=== PATIENT | male | born 1970 | race Caucasian/White ===

== ENCOUNTER 2016-12-12 15:57 | Emergency (ER) | payer OTHER ==
[~2016-12-12] VITALS: Ht 195.6 cm; Wt 156.5 kg
[2016-12-12 16:31] LABS: ABSOLUTE BASOPHIL COUNT 0.1 /CUMM (0.0-0.2); ABSOLUTE EOSINOPHIL COUNT 0.3 /CUMM (0.0-0.7); ABSOLUTE GRANULOCYTE CT 7.6 /CUMM (1.4-6.5); ABSOLUTE LYMPH COUNT 1.8 /CUMM (1.2-3.4); ABSOLUTE MONOCYTE COUNT 0.8 /CUMM (0.10-0.60); BASOPHIL % 0.6 % (0.0-2.0); EOSINOPHIL % 3.1 % (0-5); GRANULOCYTE % 72.1 % (42.2-75.2); HEMATOCRIT 42.2 % (42-52); MEAN CORPUSCULAR HGB 30.5 PG (27.0-31.0); MEAN CORPUSCULAR HGB CONC 34.2 G/DL (33.0-37.0); MEAN CORPUSCULAR VOLUME 89.3 FL (80.0-94.0); MEAN PLATELET VOLUME 8.9 FL (7.4-10.4); PLATELET COUNT 231 /CUMM (130-400); RBC DISTRIBUTION WIDTH 13.9 % (11.5-14.5); RED BLOOD CELL CT 4.73 /CUMM (4.70-6.10); WHITE BLOOD CELL COUNT 10.6 /CUMM (4.8-10.8)
[2016-12-12 16:35] LABS: PT 10.8 SEC (9.4-12.5); PTT 33 SEC (25-37)
--- NOTE | 2016-12-12 17:24 | RADIOLOGY REPORT ---
EXAMINATION: XR CHEST CLINICAL INFORMATION: Chest pain. COMPARISON: No relevant prior studies are available for comparison. TECHNIQUE: PA and lateral views of the chest were obtained. FINDINGS: The lungs are clear. The cardiomediastinal silhouette is normal in size. There is no pleural effusion or pneumothorax. No abnormalities are noted in the visualized bones. IMPRESSION: No acute cardiopulmonary disease.
--- NOTE | 2016-12-12 17:40 | ED CARDIAC/CP/PALPITATIONS ---
See Addendum History of Present Illness General Chief Complaint: Chest Pain Stated Complaint: PT IS HAVING CHEST PAIN SINCE AM Source: patient, family, old records Exam Limitations: no limitations Vital Signs & Intake/Output Vital Signs & Intake/Output Vital Signs Date Time Temp Pulse Resp B/P Pulse O2 O2 Flow FiO2 Ox Delivery Rate 12/12 1835 96.9 77 20 174/92 98 Room Air 12/12 1735 Room Air Room Air 12/12 1607 99.1 77 18 158/92 95 Room Air Allergies Coded Allergies: No Known Allergies (12/12/16) Reconcile Medications No Known Home Medications Triage Note: 46 YO MALE TO TRIAGE C/O TIGHTENING IN CENTER OF CHEST. PAIN IS NONRADIATING. STATES HE WOKE UP "GASPING FOR AIR" THIS AM AND THATS WHEN THE PAIN STARTED. DENIES ANY PMH, STATES HE HASNT SEEN A DR IN 15YEARS. PAULA SOB AT THIS TIME. EKG IN PROGRESS AT THIS TIME,. Triage Nurses Notes Reviewed? yes Onset: Morning Duration: hour(s):, constant, continues in ED Timing: recent history Quality/Severity: mild, aching Location: central Radiation: back Activities at Onset: none Prior Chest Pain/Card Workup: no prior cardiac workup Nitro Today/Relief: no nitro taken today Aspirin Today: no aspirin today Associated Symptoms: abdominal pain HPI: 12 hours prior to admission patient awoke with acute shortness of breath causing the jump out of bed he drink water and felt better when back to sleep. 9 hours prior to admission on the way to work he developed mild to moderate discomfort in his chest constant worse with palpation radiating to his back. There was no change in quality or severity with ambulation. He also complains of episodic constipation with left lower quadrant discomfort over the last few weeks. He denies fever chills nausea vomiting diarrhea shortness of breath cough headache dysuria rash bleeding. Past History Travel History Traveled to [place] past 21 day No Medical History Any Pertinent Medical History? 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 Yes (AAA father) Review of Systems Review of Systems Constitutional: Reports: no symptoms. EENTM: Reports: no symptoms. Respiratory: Reports: see HPI, short of breath. Cardiovascular: Reports: see HPI, chest pain. GI: Reports: see HPI, abdominal pain. Genitourinary: Reports: no symptoms. Musculoskeletal: Reports: see HPI, back pain. Skin: Reports: no symptoms. Neurological/Psychological: Reports: no symptoms. Hematologic/Endocrine: Reports: no symptoms. Immunologic/Allergic: Reports: no symptoms. All Other Systems: Reviewed and Negative Physical Exam Physical Exam General Appearance: well developed/nourished, alert, awake, anxious, mild distress, obese Head: atraumatic, normal appearance Eyes: Bilateral: normal appearance, PERRL, EOMI. Ears, Nose, Throat: normal pharynx, normal ENT inspection Neck: normal inspection, supple, full range of motion, no midline tenderness Respiratory: normal breath sounds, no respiratory distress, quiet respiration, lungs clear, central anterior chest tenderness Cardiovascular: regular rate/rhythm, normal peripheral pulses, norml femoral pulses equa Peripheral Pulses: 4+ carotid (R), 4+ carotid (L) Gastrointestinal: normal bowel sounds, soft, non-tender, no organomegaly Back: normal inspection, normal range of motion Extremities: normal inspection, normal capillary refill, normal range of motion, no edema Neurologic/Psych: no motor/sensory deficits, awake, alert, oriented x 3, normal gait, normal mood/affect, 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 Skin: intact, normal color, warm/dry Lymphatic: no anterior cervical omer Core Measures ACS in differential dx? Yes Severe Sepsis Present: No Septic Shock Present: No Progress Differential Diagnosis: AMI, aortic dissection, costochondritis, hyperkalemia, pancreatitis, pneumonia Plan of Care: Orders Procedure Date/time Status Add-on Test (ER Only) 12/12 173 Active CTA CHEST-AORTIC DISSECTION 12/[address] ABD & PELVIS ANGIOGRAM 12/12 173 Active LIPASE 12/12 1616 Complete TROPONIN LEVEL 12/12 1602 Complete PARTIAL THROMBOPLASTIN TIME 12/12 1602 Complete PROTHROMBIN TIME 12/12 1602 Complete MAGNESIUM 12/12 1602 Complete COMPREHENSIVE METABOLIC PANEL 12/12 1602 Complete CBC WITHOUT DIFFERENTIAL 12/12 1602 Complete EKG 12/12 1559 Active Laboratory Tests 12/12/16 1616: Anion Gap 9, Estimated GFR > 60, BUN/Creatinine Ratio 17.5, Glucose 85, Calcium 9.2, Magnesium 1.6, Total Bilirubin 0.5, AST 28, ALT 43, Alkaline Phosphatase 73 , Troponin I 0.01, Total Protein 7.3, Albumin 4.0, Globulin 3.3, Albumin/ Globulin Ratio 1.2, Lipase 33, PT 10.8, INR 1.03, APTT 33, CBC w Diff NO MAN DIFF REQ, RBC 4.73, MCV 89.3, MCH 30.5, RDW 13.9, MPV 8.9, Gran % 72.1, Lymphocytes % 17.0 L, Monocytes % 7.2, Eosinophils % 3.1, Basophils % 0.6, Absolute Granulocytes 7.6 H, Absolute Lymphocytes 1.8, Absolute Monocytes 0.8 H, Absolute Eosinophils 0.3, Absolute Basophils 0.1, PUBS MCHC 34.2 Diagnostic Imaging: Viewed by Me: Radiology Read, CT Scan. Discussed w/RAD: Radiology Read, CT Scan. Initial ED EKG: normal axis, normal intervals, normal p-waves, normal QRS complex, normal sinus rhythm, no ST T wave changes Rhythm Strip: normal sinus rhythm Hand-Off Endorsed To: SERGEI DUNCAN,PABLO Luu Endorsed Time: 1915 Pending: CT Departure Departure Disposition: STILL A PATIENT Condition: Stable Clinical Impression Primary Impression: Chest pain in adult Secondary Impressions: Abdominal pain Qualifiers: Abdominal location: left lower quadrant Qualified Code: R10.32 - Left lower quadrant pain Referrals: PATIENT HAS NO PRIMARY CARE DR (PCP/Family) Departure Forms: Customer Survey General Discharge Information Prescriptions: Current Visit Scripts No Known Home Medications Critical Care Note Critical Care Note Critical Care Time: non-applicable
--- NOTE | 2016-12-12 19:33 | CT SCAN REPORT ---
EXAMINATION: CT ANGIOGRAM CHEST CT ANGIOGRAM ABDOMEN AND PELVIS CLINICAL INFORMATION: Chest pain radiating to the back, shortness of breath. Lower left abdominal pain. Evaluate for aortic dissection, abdominal aortic aneurysm. COMPARISON: Chest radiograph done earlier the same day. TECHNIQUE: Contiguous axial thin section helical images of the chest, abdomen and pelvis were performed following the administration of oral contrast and 119 mL mL of intravenous Optiray 350. The data set was reformatted in the coronal and sagittal planes and reviewed on an independent workstation. DLP: 2268.78 mGy-cm. FINDINGS: THORACIC AORTA: No aortic dilatation or dissection. LUNGS: No airspace consolidation, pulmonary nodule, or pulmonary mass. MEDIASTINUM: No cardiomegaly. No pericardial effusion. No mediastinal or hilar lymphadenopathy. PLEURA: There is no pleural effusion. No pleural mass or thickening. No pneumothorax. AXILLA: No lymphadenopathy. LIVER, GALLBLADDER, BILIARY TREE: The liver is normal in size, shape, and attenuation. No focal hepatic lesion or biliary ductal dilatation is present. The gallbladder is unremarkable with no evidence of radiopaque gallstones, gallbladder wall thickening, or obvious pericholecystic inflammatory changes. PANCREAS: Unremarkable. SPLEEN: Unremarkable. ADRENAL GLANDS: Unremarkable. KIDNEYS: The kidneys are normal in size, shape, and attenuation. No hydronephrosis, hydroureter, or calculi seen. No perinephric stranding. URETERS AND BLADDER: Unremarkable. GASTROINTESTINAL TRACT: No large or small bowel obstruction. No intra-abdominal free air or free fluid. The appendix is not identified, however there is no right lower quadrant inflammatory change. ABDOMINAL AORTA/IVC: No abdominal aortic dilatation or dissection. There are a few scattered atherosclerotic calcifications within the distal abdominal aorta and its branch vessels. The IVC is unremarkable. PELVIC VISCERA: Unremarkable. BONES: No lytic or blastic osseous lesion. Mild lumbar spine degenerative changes, most notably at L5-S1. IMPRESSION: CHEST: 1. No thoracic aortic aneurysm or dissection. 2. Clear lungs. ABDOMEN/PELVIS: 1. No abdominal aortic aneurysm or dissection. 2. No acute intra-abdominal pathology.
[2016-12-12 20:00] VITALS: BP 165/88
== END 2016-12-12 20:50 ==
LOC: ERH 15:57
PROVIDERS: Emergency Medicine
DX: R07.89 Other chest pain (principal); R10.32 Left lower quadrant pain
CPT/HCPCS: 74174; 93005; 93010